=== PATIENT | male | born 2000 | race African-American/Black ===

== ENCOUNTER 2023-06-20 15:12 | Emergency (ER) | payer OTHER ==
[~2023-06-20] VITALS: Ht 177.8 cm; Wt 64.0 kg
[2023-06-20 15:18] VITALS: BP 112/78; PULSE 86; RESP 15; O2SAT 95
[2023-06-20 15:30] VITALS: TEMP 98.3
[2023-06-20] MEDS ORDERED: ACETAMINOPHEN 325MG TABLET PO ONE (15:30)
[2023-06-20] MEDS ORDERED: TOPUD PO (16:34)
== END 2023-06-20 17:22 | disposition home or self-care (01) ==
LOC: ER 15:12
DX: S09.90XA Unspecified injury of head, initial encounter (principal); V49.49XA Driver injured in collision with other motor vehicles in traffic accident, initial encounter; Y93.89 Activity, other specified; Y92.89 Other specified places as the place of occurrence of the external cause; Y99.8 Other external cause status; Z88.0 Allergy status to penicillin
CPT/HCPCS: 99284